=== PATIENT | male | born 1945 | race Caucasian/White ===

== ENCOUNTER 2019-11-01 04:54 | Observation (INO) ==
[2019-11-01] MEDS ORDERED: ASPIRIN 325 MG TABLET PO STA (05:23)
[2019-11-01 05:58] LABS: Alanine Aminotransferase 30 U/L (16-61); Albumin 3.5 G/DL (3.4-5.0); Alkaline Phosphatase 71 U/L (45-117); Aspartate Amino Transferase 18 U/L (0-37); Blood Urea Nitrogen 19 MG/DL (7-18); Calcium 8.6 MG/DL (8.5-10.1); Estimated Glom Filtration Rate 63 ML/MIN; Glucose 143 MG/DL (74-106); Osmolality,Calculated 273.1 MOS/KG (273-304); Total Protein 7.1 G/DL (6.4-8.3)
[2019-11-01 06:14] LABS: Basophils # 0.1 10*3/uL (0.0-0.2); Basophils % 0.7 % (0.0-0.8); Eosinophils # 0.4 10*3/uL (0.0-0.87); Eosinophils % 5.7 % (0.00-10.9); Hematocrit 37.1 VOL% (42.0-52.0); Hemoglobin 12.4 GM/DL (14.0-18.0); Immature Granulocytes % 0.7 %; Immature Granulocytes Absolute 0.05 #; Lymphocytes # 1.9 10*3/uL (1.4-4.0); Mean Corpuscular HGB Conc 33.4 GM/DL (32-36); Mean Platelet Volume 10.6 FL (9.6-12.0); Monocytes % 7.3 % (1.7-12.7); Neutrophils % 60.6 % (38.7-73.9); Platelet Count 226 T/CUMM (130-400); Red Blood Count 3.99 MC/CUMM (3.8-5.5); White Blood Count 7.4 T/CUMM (4-12)
[2019-11-01] MEDS ORDERED: SODIUM CHLORIDE 0.9% 1,000 ML IV STA (06:24)
[2019-11-01] MEDS ORDERED: VANCOMYCIN INJ 1,500 MG in SODIUM CHLORIDE 0.9% 250 ML IV ONE (06:54)
[2019-11-01] MEDS ORDERED: VANCOMYCIN 1,000 MG VIAL ONE (07:01)
[2019-11-01] MEDS ORDERED: ONDANSETRON 4 MG/2 ML VIAL IV PRN (07:57)
[2019-11-01] MEDS ORDERED: BISACODYL 5 MG TABLET PO PRN (07:57)
[2019-11-01 08:17] LABS: Risk Ratio 8.15; VLDL CHOLESTEROL 147.4 MG/DL
[2019-11-01 08:22] LABS: PT Patient Result 10.7 SECS (9.6-12.2)
[2019-11-01] MEDS ORDERED: ASPIRIN EC 81 MG TABLET PO SCH (09:00)
[2019-11-01] MEDS ORDERED: PANTOPRAZOLE 40 MG TABLET PO SCH (09:00)
[2019-11-01] MEDS: SODIUM CHLORIDE 0.9% 1,000 ML IV SCH (09:09)
[2019-11-01] MEDS: CALCIUM (CARBONATE)/VITAMIN D 600 MG-400 UNIT TABLET PO SCH ×2 (11:55→20:59)
[2019-11-01] MEDS: APIXABAN 5 MG TABLET PO SCH (11:55)
[2019-11-01] MEDS: CHOLECALCIFEROL 5,000 UNIT TABLET PO SCH (11:56)
[2019-11-01] MEDS: SERTRALINE 50 MG TABLET PO SCH (11:56)
[2019-11-01] MEDS: ALFUZOSIN 10 MG TABLET PO SCH (11:56)
[2019-11-01] MEDS: gemfibroziL 600 MG TABLET PO SCH (19:07)
[2019-11-01] MEDS: DOXYCYCLINE HYCLATE 100 MG CAPSULE PO SCH (20:59)
[2019-11-01] MEDS ORDERED: DONEPEZIL 5 MG TABLET PO SCH (21:00)
[2019-11-01] MEDS ORDERED: VANCOMYCIN INJ 1,500 MG in SODIUM CHLORIDE 0.9% 500 ML IV SCH (21:00)
[2019-11-02 05:29] LABS: Calcium 8.4 MG/DL (8.5-10.1); Osmolality,Calculated 281.3 MOS/KG (273-304)
[2019-11-02] MEDS: SODIUM CHLORIDE 0.9% 1,000 ML IV SCH (05:58)
[2019-11-02 08:30] LABS: Apearance,Urine CLEAR (Clear); Bilirubin,Urine Negative (Negative); Blood, Urine Moderate mg/dL (Negative); Glucose,Urine (UA) Negative (Negative); Ketones,Urine Negative (Negative); Nitrite,Urine Negative (Negative); Protein,Urine Negative; RBC,Urine 17 /HPF (0-4); Urine Color Straw (Yellow); Urine Specific Gravity 1.008 (1.001-1.035); Urine Urobilinogen < 2.0 EU/DL (0.2-1.0); WBC,Urine 1 /HPF (0-6)
[2019-11-02] MEDS: ALFUZOSIN 10 MG TABLET PO SCH (09:34)
[2019-11-02] MEDS: CALCIUM (CARBONATE)/VITAMIN D 600 MG-400 UNIT TABLET PO SCH (09:34)
[2019-11-02] MEDS: DOXYCYCLINE HYCLATE 100 MG CAPSULE PO SCH (09:35)
[2019-11-02] MEDS: APIXABAN 5 MG TABLET PO SCH (09:35)
[2019-11-02] MEDS: gemfibroziL 600 MG TABLET PO SCH (09:35)
[2019-11-02] MEDS: CHOLECALCIFEROL 5,000 UNIT TABLET PO SCH (09:35)
[2019-11-02] MEDS: SERTRALINE 50 MG TABLET PO SCH (09:41)
[2019-11-02 11:44] VITALS: BP 145/82
== END 2019-11-02 14:10 | disposition home or self-care (01) ==
LOC: N.EDINP 04:54 → N.ED 04:54 → N.EDINP 08:40 → N.4E 08:59
PROVIDERS: ADMIT Internal Medicine; ATTEND Internal Medicine

== ENCOUNTER 2022-02-25 09:45 | Inpatient (IN) ==
[2022-02-25] MEDS ORDERED: THIAMINE INJ 100 MG, FOLIC ACID INJ 1 MG, MAGNESIUM SULF INJ 2 GM, MULTIVITAMIN INJ 10 ... IV ONE (10:15)
[2022-02-25] MEDS ORDERED: SODIUM CHLORIDE 0.9% 1,000 ML IV STA (10:15)
[2022-02-25 10:46] LABS: Basophils % 0.5 % (0.0-0.8); Eosinophils # 0.1 10*3/uL (0.0-0.87); Eosinophils % 1.5 % (0.00-10.9); Hematocrit 36.6 VOL% (42.0-52.0); Hemoglobin 12.8 GM/DL (14.0-18.0); Immature Granulocytes % 0.5 %; Immature Granulocytes Absolute 0.04 #; Lymphocytes # 1.4 10*3/uL (1.4-4.0); Lymphocytes % 16.9 % (21.2-54.2); Mean Corpuscular Volume 93.4 FL (87-102); Mean Platelet Volume 10.7 FL (9.6-12.0); Monocytes # 0.7 10*3/uL (0.11-0.8); Monocytes % 8.4 % (1.7-12.7); Neutrophils % 72.2 % (38.7-73.9); Platelet Count 234 T/CUMM (130-400); Red Blood Count 3.92 MC/CUMM (3.8-5.5); Red Cell Distribution Width 15.4 % (9.3-17.3)
[2022-02-25 10:56] LABS: PT Patient Result 11.4 SECS (10.5-12.0)
[2022-02-25 11:03] LABS: Albumin 3.4 G/DL (3.4-5.0); Bilirubin,Total 1.4 MG/DL (0.20-1.00); Calcium 8.3 MG/DL (8.5-10.1); Osmolality,Calculated 283.3 MOS/KG (273-304); Potassium 3.4 MMOL/L (3.5-5.1); Thyroid Stimulating Hormone 1.24 uIU/ml (0.358-3.74); Total Protein 6.3 G/DL (6.4-8.2)
[2022-02-25] MEDS ORDERED: GLUCAGON 1 MG VIAL IM PRN (13:33)
[2022-02-25] MEDS ORDERED: ONDANSETRON 4 MG/2 ML VIAL IV PRN (13:33)
[2022-02-25 13:45] LABS: Arterial Base Excess iSTAT 1 MMOL/L (-2.5-2.5); Arterial Bicarbonate iSTAT 26.1 MMOL/L (20-26); Arterial O2 Saturation iSTAT 94 % (95-100); Arterial PCO2 iSTAT 42 MM HG (35-48); Arterial PO2 iSTAT 72 MM HG (80-95); Arterial Total CO2 iSTAT 27 MMO/L (23-27); Arterial pH iSTAT 7.406 (7.35-7.45)
[2022-02-25] MEDS ORDERED: ACETAMINOPHEN 650 MG SUPP RECTAL PRN (13:51)
[2022-02-25] MEDS ORDERED: HEPARIN 5,000 UNIT/1 ML VIAL SUBCUT SCH (14:00)
[2022-02-25] MEDS ORDERED: DEXTROSE 10% 250 ML BAG IV PRN (14:05)
[2022-02-25] MEDS ORDERED: POTASSIUM CHLORIDE RIDER 10 MEQ/100 ML PREMIX IV PRN (15:03)
[2022-02-25 15:09] LABS: Urine Appearance Slightly Hazy (Clear); Urine Color Yellow (Yellow); Urine Specific Gravity 1.025 (1.001-1.035); Urine pH 6.5 (4.5-8.0)
[2022-02-25 15:10] LABS: Bilirubin,Urine Small mg/dL (Negative); Blood, Urine Negative (Negative); Glucose,Urine (UA) Negative (Negative); Ketones,Urine Negative (Negative); Nitrite,Urine Negative (Negative); Protein,Urine Trace mg/dL (Negative)
[2022-02-25 15:13] LABS: Mucus,Urine Occasional /LPF (Occasional); RBC,Urine 5 /HPF (0-4); Squamous Epithelial Cell,Urine Occasional /HPF (0-10)
[2022-02-25] MEDS: LACTATED RINGERS 1,000 ML IV SCH (18:40)
[2022-02-25] MEDS: cefTRIAXone 1,000 MG in SODIUM CHLORIDE 0.9% 100 ML IV SCH (18:40)
[2022-02-25] MEDS: clonazePAM 0.5 MG TABLET PO PRN (21:38)
[2022-02-25] MEDS: ATORVASTATIN 80 MG TABLET PO SCH (21:38)
[2022-02-25] MEDS: DOXYCYCLINE HYCLATE INJ 100 MG in SODIUM CHLORIDE 0.9% 100 ML IV SCH (21:39)
[2022-02-26] MEDS ORDERED: LORazepam 2 MG/1 ML VIAL IV ONE (01:07)
[2022-02-26 05:36] LABS: Basophils % 0.6 % (0.0-0.8); Eosinophils # 0.2 10*3/uL (0.0-0.87); Eosinophils % 2.4 % (0.00-10.9); Hematocrit 36.6 VOL% (42.0-52.0); Hemoglobin 12.3 GM/DL (14.0-18.0); Immature Granulocytes % 0.3 %; Immature Granulocytes Absolute 0.02 #; Lymphocytes # 1.4 10*3/uL (1.4-4.0); Lymphocytes % 21.7 % (21.2-54.2); Mean Corpuscular HGB Conc 33.6 GM/DL (32-36); Mean Corpuscular Volume 95.3 FL (87-102); Mean Platelet Volume 11.1 FL (9.6-12.0); Monocytes # 0.5 10*3/uL (0.11-0.8); Monocytes % 7.2 % (1.7-12.7); Neutrophils % 67.8 % (38.7-73.9); Platelet Count 243 T/CUMM (130-400); Red Blood Count 3.84 MC/CUMM (3.8-5.5); Red Cell Distribution Width 15.2 % (9.3-17.3); White Blood Count 6.6 T/CUMM (4-12)
[2022-02-26 06:08] LABS: Albumin 3.2 G/DL (3.4-5.0); Bilirubin,Total 1.3 MG/DL (0.20-1.00); Calcium 8.3 MG/DL (8.5-10.1); Total Protein 6.2 G/DL (6.4-8.2)
[2022-02-26] MEDS ORDERED: DIAZEPAM 5 MG TABLET PO ONE (08:34)
[2022-02-26] MEDS ORDERED: diphenhydrAMINE CAP 25 MG CAPSULE PO ONE (08:34)
[2022-02-26] MEDS ORDERED: ceFAZolin 1,000 MG VIAL IRRIG ONE (08:34)
[2022-02-26] MEDS ORDERED: MIDAZOLAM 2 MG/2 ML VIAL ONE (10:09)
[2022-02-26] MEDS ORDERED: HYDROmorphone 1 MG/1 ML SYRINGE ONE ×2 (10:09→10:34)
[2022-02-26] MEDS ORDERED: LIDOCAINE 1%/EPI INJ 20 ML VIAL ONE (10:09)
[2022-02-26] MEDS ORDERED: ceFAZolin 1,000 MG VIAL ONE (10:16)
[2022-02-26] MEDS ORDERED: TISSUE ADHESIVE 1 EACH APPLICATOR TOP ONE (10:52)
[2022-02-26] MEDS: DOXYCYCLINE HYCLATE INJ 100 MG in SODIUM CHLORIDE 0.9% 100 ML IV SCH ×2 (13:37→22:57)
[2022-02-26] MEDS: LACTATED RINGERS 1,000 ML IV SCH ×2 (14:35→14:39)
[2022-02-26] MEDS: cefTRIAXone 1,000 MG in SODIUM CHLORIDE 0.9% 100 ML IV SCH (16:56)
[2022-02-26] MEDS: DONEPEZIL 10 MG TABLET PO SCH (22:33)
[2022-02-26] MEDS: OLANZapine 5 MG TABLET PO SCH (22:34)
[2022-02-26] MEDS: ATORVASTATIN 80 MG TABLET PO SCH (22:34)
[2022-02-27] MEDS: LACTATED RINGERS 1,000 ML IV SCH ×3 (03:19→18:38)
[2022-02-27 05:13] LABS: Basophils % 0.5 % (0.0-0.8); Eosinophils # 0.1 10*3/uL (0.0-0.87); Eosinophils % 1.5 % (0.00-10.9); Hemoglobin 13.6 GM/DL (14.0-18.0); Immature Granulocytes % 0.2 %; Immature Granulocytes Absolute 0.02 #; Lymphocytes # 1.3 10*3/uL (1.4-4.0); Lymphocytes % 15.2 % (21.2-54.2); Mean Corpuscular Volume 94.1 FL (87-102); Mean Platelet Volume 10.9 FL (9.6-12.0); Monocytes # 0.6 10*3/uL (0.11-0.8); Monocytes % 6.4 % (1.7-12.7); Neutrophils % 76.2 % (38.7-73.9); Platelet Count 235 T/CUMM (130-400); Red Blood Count 4.25 MC/CUMM (3.8-5.5); Red Cell Distribution Width 14.9 % (9.3-17.3); White Blood Count 8.7 T/CUMM (4-12)
[2022-02-27 05:28] LABS: Calcium 8.4 MG/DL (8.5-10.1); Osmolality,Calculated 278.4 MOS/KG (273-304); Potassium 4.3 MMOL/L (3.5-5.1)
[2022-02-27] MEDS: ASPIRIN EC 81 MG TABLET PO SCH (09:37)
[2022-02-27] MEDS: DOXYCYCLINE HYCLATE INJ 100 MG in SODIUM CHLORIDE 0.9% 100 ML IV SCH (09:55)
[2022-02-27] MEDS: carvediloL 3.125 MG TABLET PO SCH ×2 (09:57→21:29)
[2022-02-27] MEDS: APIXABAN 5 MG TABLET PO SCH (21:27)
[2022-02-27] MEDS: OLANZapine 5 MG TABLET PO SCH (21:27)
[2022-02-27] MEDS: ATORVASTATIN 80 MG TABLET PO SCH (21:27)
[2022-02-27] MEDS: DONEPEZIL 10 MG TABLET PO SCH (21:29)
[2022-02-27] MEDS: clonazePAM 0.5 MG TABLET PO PRN (21:29)
[2022-02-28] MEDS: LACTATED RINGERS 1,000 ML IV SCH ×2 (04:39→19:49)
[2022-02-28] MEDS: APIXABAN 5 MG TABLET PO SCH ×2 (09:59→20:26)
[2022-02-28] MEDS: carvediloL 3.125 MG TABLET PO SCH ×2 (09:59→20:26)
[2022-02-28] MEDS: ASPIRIN EC 81 MG TABLET PO SCH (09:59)
[2022-02-28] MEDS: ATORVASTATIN 80 MG TABLET PO SCH (20:26)
[2022-03-01] MEDS: LACTATED RINGERS 1,000 ML IV SCH ×5 (04:56→17:24)
[2022-03-01 07:43] LABS: Basophils # 0.1 10*3/uL (0.0-0.2); Basophils % 0.7 % (0.0-0.8); Eosinophils # 0.2 10*3/uL (0.0-0.87); Eosinophils % 3.1 % (0.00-10.9); Hemoglobin 12.7 GM/DL (14.0-18.0); Immature Granulocytes % 0.5 %; Immature Granulocytes Absolute 0.04 #; Lymphocytes # 1.5 10*3/uL (1.4-4.0); Lymphocytes % 20.2 % (21.2-54.2); Mean Corpuscular HGB Conc 34.3 GM/DL (32-36); Mean Corpuscular Volume 92.5 FL (87-102); Mean Platelet Volume 10.6 FL (9.6-12.0); Monocytes # 0.6 10*3/uL (0.11-0.8); Monocytes % 7.9 % (1.7-12.7); Neutrophils % 67.6 % (38.7-73.9); Platelet Count 215 T/CUMM (130-400); Red Cell Distribution Width 14.8 % (9.3-17.3); White Blood Count 7.4 T/CUMM (4-12)
[2022-03-01 08:05] LABS: Albumin 2.9 G/DL (3.4-5.0); Bilirubin,Total 1.1 MG/DL (0.20-1.00); Calcium 8.5 MG/DL (8.5-10.1); Osmolality,Calculated 274.7 MOS/KG (273-304); Potassium 3.9 MMOL/L (3.5-5.1); Total Protein 5.9 G/DL (6.4-8.2)
[2022-03-01] MEDS: carvediloL 3.125 MG TABLET PO SCH ×2 (08:13→21:27)
[2022-03-01] MEDS: ASPIRIN EC 81 MG TABLET PO SCH (08:13)
[2022-03-01] MEDS: APIXABAN 5 MG TABLET PO SCH ×2 (08:13→21:27)
[2022-03-01] MEDS: ATORVASTATIN 80 MG TABLET PO SCH (21:27)
[2022-03-01] MEDS: clonazePAM 0.5 MG TABLET PO PRN (21:30)
[2022-03-02 04:22] LABS: Basophils % 0.6 % (0.0-0.8); Eosinophils # 0.2 10*3/uL (0.0-0.87); Hematocrit 39.4 VOL% (42.0-52.0); Hemoglobin 13.8 GM/DL (14.0-18.0); Immature Granulocytes % 0.6 %; Immature Granulocytes Absolute 0.04 #; Lymphocytes # 1.3 10*3/uL (1.4-4.0); Lymphocytes % 19.3 % (21.2-54.2); Mean Corpuscular Volume 91.6 FL (87-102); Mean Platelet Volume 10.4 FL (9.6-12.0); Monocytes # 0.5 10*3/uL (0.11-0.8); Monocytes % 7.1 % (1.7-12.7); Neutrophils % 69.4 % (38.7-73.9); Platelet Count 251 T/CUMM (130-400); Red Cell Distribution Width 14.7 % (9.3-17.3); White Blood Count 6.6 T/CUMM (4-12)
[2022-03-02 04:40] LABS: Calcium 8.6 MG/DL (8.5-10.1); Osmolality,Calculated 276.5 MOS/KG (273-304); Potassium 3.9 MMOL/L (3.5-5.1)
[2022-03-02] MEDS: APIXABAN 5 MG TABLET PO SCH ×2 (10:52→21:19)
[2022-03-02] MEDS: carvediloL 3.125 MG TABLET PO SCH ×2 (10:52→21:18)
[2022-03-02] MEDS: ASPIRIN EC 81 MG TABLET PO SCH (10:52)
[2022-03-02] MEDS: ATORVASTATIN 80 MG TABLET PO SCH (21:18)
[2022-03-02] MEDS: QUEtiapine 25 MG TABLET PO SCH (21:19)
[2022-03-03] MEDS: APIXABAN 5 MG TABLET PO SCH ×2 (11:07→20:39)
[2022-03-03] MEDS: carvediloL 3.125 MG TABLET PO SCH ×2 (11:07→20:39)
[2022-03-03] MEDS: ASPIRIN EC 81 MG TABLET PO SCH (11:07)
[2022-03-03] MEDS: QUEtiapine 25 MG TABLET PO SCH (20:39)
[2022-03-03] MEDS: ATORVASTATIN 80 MG TABLET PO SCH (20:39)
[2022-03-04 05:24] LABS: Basophils # 0.1 10*3/uL (0.0-0.2); Basophils % 0.8 % (0.0-0.8); Eosinophils # 0.2 10*3/uL (0.0-0.87); Eosinophils % 2.8 % (0.00-10.9); Hematocrit 40.3 VOL% (42.0-52.0); Hemoglobin 13.8 GM/DL (14.0-18.0); Immature Granulocytes % 0.3 %; Immature Granulocytes Absolute 0.02 #; Lymphocytes # 1.7 10*3/uL (1.4-4.0); Lymphocytes % 27.8 % (21.2-54.2); Mean Corpuscular HGB Conc 34.2 GM/DL (32-36); Mean Corpuscular Volume 92.4 FL (87-102); Monocytes # 0.6 10*3/uL (0.11-0.8); Neutrophils % 59.3 % (38.7-73.9); Platelet Count 257 T/CUMM (130-400); Red Blood Count 4.36 MC/CUMM (3.8-5.5); Red Cell Distribution Width 14.6 % (9.3-17.3); White Blood Count 6.1 T/CUMM (4-12)
[2022-03-04 05:26] LABS: Calcium 9.1 MG/DL (8.5-10.1); Osmolality,Calculated 281.4 MOS/KG (273-304); Potassium 3.9 MMOL/L (3.5-5.1)
[2022-03-04] MEDS: carvediloL 3.125 MG TABLET PO SCH ×2 (08:55→20:00)
[2022-03-04] MEDS: ASPIRIN EC 81 MG TABLET PO SCH (08:55)
[2022-03-04] MEDS: APIXABAN 5 MG TABLET PO SCH ×2 (08:56→20:00)
[2022-03-04] MEDS: ATORVASTATIN 80 MG TABLET PO SCH (20:00)
[2022-03-04] MEDS: QUEtiapine 25 MG TABLET PO SCH (20:00)
[2022-03-04] MEDS ORDERED: LORazepam 2 MG/1 ML VIAL IV PRN (20:33)
[2022-03-05] MEDS: ASPIRIN EC 81 MG TABLET PO SCH (08:43)
[2022-03-05] MEDS: carvediloL 3.125 MG TABLET PO SCH (08:43)
[2022-03-05] MEDS: APIXABAN 5 MG TABLET PO SCH (08:43)
[2022-03-05 11:51] VITALS: BP 121/78
[2022-03-05] MEDS ORDERED: QUEtiapine 25 MG TABLET PO SCH (21:00)
== END 2022-03-05 15:00 | disposition home health service (06) | DRG 876 ==
LOC: N.EDINP 09:45 → N.ED 09:45 → SUATTDRO 13:33 → N.EDINP 15:39 → N.TELES 16:39 → SUATTDRO 02-28 15:25
PROVIDERS: ADMIT Internal Medicine; ATTEND Emergency Medicine

== ENCOUNTER 2022-03-16 13:14 | Inpatient (IN) ==
[2022-03-16 13:27] LABS: Basophils # 0.1 10*3/uL (0.0-0.2); Basophils % 0.4 % (0.0-0.8); Eosinophils % 0.1 % (0.00-10.9); Hematocrit 53.2 VOL% (42.0-52.0); Hemoglobin 17.9 GM/DL (14.0-18.0); Immature Granulocytes % 0.5 %; Immature Granulocytes Absolute 0.07 #; Lymphocytes % 14.5 % (21.2-54.2); Mean Corpuscular HGB Conc 33.6 GM/DL (32-36); Mean Corpuscular Volume 95.3 FL (87-102); Mean Platelet Volume 11.9 FL (9.6-12.0); Monocytes % 7.1 % (1.7-12.7); NRBC # 0.02 10*3/uL; Neutrophils % 77.4 % (38.7-73.9); Platelet Count 340 T/CUMM (130-400); Red Blood Count 5.58 MC/CUMM (3.8-5.5); White Blood Count 14.1 T/CUMM (4-12)
[2022-03-16 14:00] LABS: Mucus,Urine Occasional /LPF (Occasional); RBC,Urine 1 /HPF (0-4); Squamous Epithelial Cell,Urine Occasional /HPF (0-10)
[2022-03-16 14:03] LABS: Bilirubin,Urine Small mg/dL (Negative); Blood, Urine Negative (Negative); Glucose,Urine (UA) Negative (Negative); Ketones,Urine Negative (Negative); Nitrite,Urine Negative (Negative); Protein,Urine Trace mg/dL (Negative); Urine Appearance Clear (Clear); Urine Color Yellow (Yellow); Urine Specific Gravity 1.026 (1.001-1.035); Urine Urobilinogen 0.2 eU/dL (<2.0); Urine pH 5.5 (4.5-8.0)
[2022-03-16 14:14] LABS: Albumin 3.7 G/DL (3.4-5.0); Bilirubin,Total 1.2 MG/DL (0.20-1.00); Calcium 9.1 MG/DL (8.5-10.1); Osmolality,Calculated 313.3 MOS/KG (273-304); Potassium 4.2 MMOL/L (3.5-5.1); Total Protein 7.9 G/DL (6.4-8.2)
[2022-03-16 14:23] LABS: Barbiturates Screen,Urine Negative (Negative); Benzodiazepines Screen,Urine Negative (Negative); Cannabinoid Screen,Urine Negative (Negative); Opiate Screen,Urine Negative (Negative); Phencyclidine Screen,Urine Negative (Negative)
[2022-03-16] MEDS ORDERED: SODIUM CHLORIDE 0.9% 1,000 ML IV STA (16:17)
[2022-03-16] MEDS ORDERED: GLUCAGON 1 MG VIAL IM PRN (18:38)
[2022-03-16] MEDS: ALBUTEROL/IPRATROPIUM 3 ML NEB RESP TX SCH (18:55)
[2022-03-16] MEDS ORDERED: DEXTROSE 10% 250 ML BAG IV PRN (19:06)
[2022-03-16] MEDS: SODIUM CHLORIDE 0.9% 1,000 ML IV SCH (19:20)
[2022-03-16] MEDS: ENOXAPARIN 40 MG/0.4 ML SYRINGE SUBCUT SCH (19:21)
[2022-03-16] MEDS ORDERED: AMPICILLIN/SULBACTAM 3,000 MG VIAL IM SCH (19:30)
[2022-03-16] MEDS: AMPICILLIN/SULBACTAM 3,000 MG in SODIUM CHLORIDE 0.9% 100 ML IV SCH (21:58)
[2022-03-17] MEDS: ALBUTEROL/IPRATROPIUM 3 ML NEB RESP TX SCH ×4 (00:40→19:53)
[2022-03-17] MEDS: METOPROLOL TARTRATE 5 MG/5 ML VIAL IV SCH ×4 (00:45→17:20)
[2022-03-17] MEDS: SODIUM CHLORIDE 0.9% 1,000 ML IV SCH (04:05)
[2022-03-17 05:50] LABS: Basophils % 0.3 % (0.0-0.8); Eosinophils % 0.1 % (0.00-10.9); Hematocrit 46.4 VOL% (42.0-52.0); Hemoglobin 15.3 GM/DL (14.0-18.0); Immature Granulocytes % 0.5 %; Immature Granulocytes Absolute 0.06 #; Lymphocytes # 1.4 10*3/uL (1.4-4.0); Lymphocytes % 10.8 % (21.2-54.2); Mean Corpuscular Volume 98.3 FL (87-102); Mean Platelet Volume 11.9 FL (9.6-12.0); Monocytes # 0.8 10*3/uL (0.11-0.8); Monocytes % 6.4 % (1.7-12.7); Neutrophils % 81.9 % (38.7-73.9); Platelet Count 263 T/CUMM (130-400); Red Blood Count 4.72 MC/CUMM (3.8-5.5); White Blood Count 12.8 T/CUMM (4-12)
[2022-03-17 06:15] LABS: Calcium 8.5 MG/DL (8.5-10.1); Osmolality,Calculated 322.6 MOS/KG (273-304); Potassium 3.7 MMOL/L (3.5-5.1); Thyroid Stimulating Hormone 1.36 uIU/ml (0.358-3.74)
[2022-03-17] MEDS: PANTOPRAZOLE 40 MG VIAL IV SCH (08:56)
[2022-03-17] MEDS: DEXTROSE 5% LACTATED RINGERS 1,000 ML IV SCH ×2 (09:16→18:19)
[2022-03-17] MEDS: AMPICILLIN/SULBACTAM 3,000 MG in SODIUM CHLORIDE 0.9% 100 ML IV SCH ×2 (09:16→21:58)
[2022-03-17] MEDS: ENOXAPARIN 40 MG/0.4 ML SYRINGE SUBCUT SCH (18:19)
[2022-03-18] MEDS: METOPROLOL TARTRATE 5 MG/5 ML VIAL IV SCH ×2 (00:48→05:48)
[2022-03-18] MEDS: ALBUTEROL/IPRATROPIUM 3 ML NEB RESP TX SCH ×4 (00:51→19:30)
[2022-03-18] MEDS: DEXTROSE 5% LACTATED RINGERS 1,000 ML IV SCH (03:45)
[2022-03-18 05:17] LABS: Basophils % 0.4 % (0.0-0.8); Eosinophils % 0.4 % (0.00-10.9); Hematocrit 42.4 VOL% (42.0-52.0); Hemoglobin 13.7 GM/DL (14.0-18.0); Immature Granulocytes % 0.4 %; Immature Granulocytes Absolute 0.04 #; Lymphocytes # 1.1 10*3/uL (1.4-4.0); Lymphocytes % 11.6 % (21.2-54.2); Mean Corpuscular HGB Conc 32.3 GM/DL (32-36); Mean Corpuscular Volume 98.8 FL (87-102); Mean Platelet Volume 12.5 FL (9.6-12.0); Monocytes # 0.6 10*3/uL (0.11-0.8); Monocytes % 6.1 % (1.7-12.7); Neutrophils % 81.1 % (38.7-73.9); Platelet Count 225 T/CUMM (130-400); Red Blood Count 4.29 MC/CUMM (3.8-5.5); Red Cell Distribution Width 15.9 % (9.3-17.3); White Blood Count 9.5 T/CUMM (4-12)
[2022-03-18 05:23] LABS: Calcium 8.2 MG/DL (8.5-10.1); Potassium 3.5 MMOL/L (3.5-5.1)
[2022-03-18] MEDS: DEXTROSE 5% NACL 0.45% 1,000 ML IV SCH (09:03)
[2022-03-18] MEDS: HEPARIN 5,000 UNIT/1 ML VIAL SUBCUT SCH ×2 (09:08→20:51)
[2022-03-18] MEDS ORDERED: HALOPERIDOL 5 MG/ML AMP IM PRN (09:30)
[2022-03-18] MEDS ORDERED: BISACODYL 10 MG SUPP RECTAL ONE (11:39)
[2022-03-18] MEDS: PANTOPRAZOLE 40 MG VIAL IV SCH (12:06)
[2022-03-18] MEDS: AMPICILLIN/SULBACTAM 3,000 MG in SODIUM CHLORIDE 0.9% 100 ML IV SCH ×3 (12:10→18:23)
[2022-03-18] MEDS: VANCOMYCIN INJ 1,250 MG in SODIUM CHLORIDE 0.9% 250 ML IV SCH (13:27)
[2022-03-18 14:20] LABS: Hematocrit 42.5 VOL% (42.0-52.0); Hemoglobin 13.3 GM/DL (14.0-18.0)
[2022-03-19] MEDS: DEXTROSE 5% NACL 0.45% 1,000 ML IV SCH ×3 (00:03→07:18)
[2022-03-19] MEDS: AMPICILLIN/SULBACTAM 3,000 MG in SODIUM CHLORIDE 0.9% 100 ML IV SCH ×2 (00:04→05:06)
[2022-03-19] MEDS: ALBUTEROL/IPRATROPIUM 3 ML NEB RESP TX SCH ×4 (00:30→20:46)
[2022-03-19 05:37] LABS: Basophils # 0.1 10*3/uL (0.0-0.2); Basophils % 0.4 % (0.0-0.8); Eosinophils # 0.1 10*3/uL (0.0-0.87); Hematocrit 39.7 VOL% (42.0-52.0); Hemoglobin 12.8 GM/DL (14.0-18.0); Immature Granulocytes % 0.5 %; Immature Granulocytes Absolute 0.07 #; Lymphocytes # 0.9 10*3/uL (1.4-4.0); Lymphocytes % 6.6 % (21.2-54.2); Mean Corpuscular HGB Conc 32.2 GM/DL (32-36); Mean Corpuscular Volume 99.7 FL (87-102); Monocytes # 0.7 10*3/uL (0.11-0.8); Monocytes % 4.6 % (1.7-12.7); Neutrophils % 86.9 % (38.7-73.9); Platelet Count 183 T/CUMM (130-400); Red Blood Count 3.98 MC/CUMM (3.8-5.5); Red Cell Distribution Width 15.9 % (9.3-17.3); White Blood Count 14.2 T/CUMM (4-12)
[2022-03-19 05:56] LABS: Calcium 8.1 MG/DL (8.5-10.1); Potassium 3.3 MMOL/L (3.5-5.1)
[2022-03-19] MEDS: VANCOMYCIN INJ 1,250 MG in SODIUM CHLORIDE 0.9% 250 ML IV SCH (06:35)
[2022-03-19] MEDS ORDERED: DEXTROSE 5% 1,000 ML IV SCH (08:00)
[2022-03-19] MEDS: PANTOPRAZOLE 40 MG VIAL IV SCH (08:29)
[2022-03-19] MEDS: HEPARIN 5,000 UNIT/1 ML VIAL SUBCUT SCH ×2 (08:32→20:42)
[2022-03-19] MEDS ORDERED: POTASSIUM BICARB EFFERVESCENT 20 MEQ TAB.EFF PER TUBE ONE (10:22)
[2022-03-20] MEDS: ALBUTEROL/IPRATROPIUM 3 ML NEB RESP TX SCH ×4 (01:12→20:15)
[2022-03-20] MEDS: VANCOMYCIN INJ 1,250 MG in SODIUM CHLORIDE 0.9% 250 ML IV SCH ×2 (01:17→19:54)
[2022-03-20 05:36] LABS: Basophils % 0.4 % (0.0-0.8); Eosinophils # 0.2 10*3/uL (0.0-0.87); Eosinophils % 1.7 % (0.00-10.9); Hematocrit 38.1 VOL% (42.0-52.0); Hemoglobin 12.3 GM/DL (14.0-18.0); Immature Granulocytes % 0.7 %; Immature Granulocytes Absolute 0.07 #; Lymphocytes # 1.2 10*3/uL (1.4-4.0); Mean Corpuscular HGB Conc 32.3 GM/DL (32-36); Mean Platelet Volume 11.9 FL (9.6-12.0); Monocytes # 0.5 10*3/uL (0.11-0.8); Monocytes % 4.6 % (1.7-12.7); Neutrophils % 80.6 % (38.7-73.9); Platelet Count 174 T/CUMM (130-400); Red Blood Count 3.81 MC/CUMM (3.8-5.5); Red Cell Distribution Width 15.9 % (9.3-17.3); White Blood Count 9.8 T/CUMM (4-12)
[2022-03-20 06:11] LABS: Calcium 8.2 MG/DL (8.5-10.1); Osmolality,Calculated 314.2 MOS/KG (273-304); Phosphorous 2.6 MG/DL (2.5-4.9); Potassium 3.4 MMOL/L (3.5-5.1)
[2022-03-20] MEDS: HEPARIN 5,000 UNIT/1 ML VIAL SUBCUT SCH ×2 (10:47→20:49)
[2022-03-20] MEDS: PANTOPRAZOLE 40 MG VIAL IV SCH (10:50)
[2022-03-20] MEDS: DEXTROSE 5% 1,000 ML IV SCH (12:20)
[2022-03-20] MEDS: POTASSIUM BICARB EFFERVESCENT 20 MEQ TAB.EFF PER TUBE SCH ×2 (12:21→20:49)
[2022-03-20] MEDS ORDERED: ZINC OXIDE PASTE 113 GM TUBE TOP PRN (14:21)
[2022-03-21] MEDS: ALBUTEROL/IPRATROPIUM 3 ML NEB RESP TX SCH ×4 (01:40→19:57)
[2022-03-21 04:54] LABS: Basophils % 0.4 % (0.0-0.8); Eosinophils # 0.2 10*3/uL (0.0-0.87); Eosinophils % 2.6 % (0.00-10.9); Hematocrit 35.8 VOL% (42.0-52.0); Hemoglobin 11.6 GM/DL (14.0-18.0); Immature Granulocytes % 0.5 %; Immature Granulocytes Absolute 0.04 #; Lymphocytes % 12.2 % (21.2-54.2); Mean Corpuscular HGB Conc 32.4 GM/DL (32-36); Mean Corpuscular Volume 98.6 FL (87-102); Mean Platelet Volume 12.1 FL (9.6-12.0); Monocytes # 0.4 10*3/uL (0.11-0.8); Monocytes % 4.4 % (1.7-12.7); Neutrophils % 79.9 % (38.7-73.9); Platelet Count 169 T/CUMM (130-400); Red Blood Count 3.63 MC/CUMM (3.8-5.5); Red Cell Distribution Width 15.3 % (9.3-17.3); White Blood Count 8.4 T/CUMM (4-12)
[2022-03-21] MEDS: DEXTROSE 5% 1,000 ML IV SCH ×2 (05:04→11:12)
[2022-03-21 05:36] LABS: Calcium 7.8 MG/DL (8.5-10.1); Potassium 3.6 MMOL/L (3.5-5.1)
[2022-03-21] MEDS ORDERED: VANCOMYCIN INJ 1,000 MG in SODIUM CHLORIDE 0.9% 250 ML IV SCH (08:00)
[2022-03-21] MEDS: HEPARIN 5,000 UNIT/1 ML VIAL SUBCUT SCH ×2 (10:34→21:01)
[2022-03-21] MEDS: PANTOPRAZOLE 40 MG VIAL IV SCH (10:34)
[2022-03-22] MEDS: ALBUTEROL/IPRATROPIUM 3 ML NEB RESP TX SCH ×4 (00:06→20:09)
[2022-03-22 05:38] LABS: Basophils % 0.4 % (0.0-0.8); Eosinophils # 0.2 10*3/uL (0.0-0.87); Eosinophils % 3.1 % (0.00-10.9); Hematocrit 35.8 VOL% (42.0-52.0); Hemoglobin 11.4 GM/DL (14.0-18.0); Immature Granulocytes % 0.5 %; Immature Granulocytes Absolute 0.04 #; Lymphocytes # 1.1 10*3/uL (1.4-4.0); Lymphocytes % 13.4 % (21.2-54.2); Mean Corpuscular HGB Conc 31.8 GM/DL (32-36); Mean Corpuscular Volume 97.3 FL (87-102); Mean Platelet Volume 12.2 FL (9.6-12.0); Monocytes # 0.4 10*3/uL (0.11-0.8); Neutrophils % 77.6 % (38.7-73.9); Platelet Count 183 T/CUMM (130-400); Red Blood Count 3.68 MC/CUMM (3.8-5.5); Red Cell Distribution Width 15.2 % (9.3-17.3); White Blood Count 7.8 T/CUMM (4-12)
[2022-03-22 05:55] LABS: Calcium 7.7 MG/DL (8.5-10.1); Osmolality,Calculated 290.8 MOS/KG (273-304)
[2022-03-22] MEDS ORDERED: POTASSIUM CHLORIDE 20 MEQ TABLET PO ONE (07:35)
[2022-03-22] MEDS ORDERED: POTASSIUM BICARB EFFERVESCENT 20 MEQ TAB.EFF PER TUBE ONE (07:40)
[2022-03-22] MEDS: DEXTROSE 5% 1,000 ML IV SCH (08:10)
[2022-03-22] MEDS: PANTOPRAZOLE 40 MG VIAL IV SCH (09:20)
[2022-03-22] MEDS: HEPARIN 5,000 UNIT/1 ML VIAL SUBCUT SCH (09:26)
[2022-03-23] MEDS: ALBUTEROL/IPRATROPIUM 3 ML NEB RESP TX SCH ×4 (02:25→20:05)
[2022-03-23 04:59] LABS: Basophils % 0.3 % (0.0-0.8); Eosinophils # 0.2 10*3/uL (0.0-0.87); Eosinophils % 2.4 % (0.00-10.9); Immature Granulocytes % 0.8 %; Immature Granulocytes Absolute 0.06 #; Lymphocytes # 1.1 10*3/uL (1.4-4.0); Lymphocytes % 13.4 % (21.2-54.2); Mean Corpuscular HGB Conc 33.3 GM/DL (32-36); Mean Platelet Volume 12.2 FL (9.6-12.0); Monocytes # 0.4 10*3/uL (0.11-0.8); Monocytes % 5.2 % (1.7-12.7); Neutrophils % 77.9 % (38.7-73.9); Platelet Count 194 T/CUMM (130-400); Red Blood Count 3.75 MC/CUMM (3.8-5.5); White Blood Count 7.9 T/CUMM (4-12)
[2022-03-23 05:17] LABS: Calcium 8.1 MG/DL (8.5-10.1); Osmolality,Calculated 288.7 MOS/KG (273-304); Potassium 3.2 MMOL/L (3.5-5.1)
[2022-03-23 07:10] LABS: PT Patient Result 10.6 SECS (10.5-12.0)
[2022-03-23] MEDS ORDERED: POTASSIUM BICARB EFFERVESCENT 20 MEQ TAB.EFF PER TUBE ONE ×2 (07:21→07:27)
[2022-03-23] MEDS: PANTOPRAZOLE 40 MG VIAL IV SCH (09:42)
[2022-03-23] MEDS: LACTATED RINGERS 1,000 ML IV SCH (09:43)
[2022-03-23] MEDS ORDERED: ETOMIDATE 20 MG/10 ML VIAL IV ONE (10:21)
[2022-03-23] MEDS ORDERED: LIDOCAINE 2% 5 ML VIAL ONE (10:21)
[2022-03-23] MEDS ORDERED: propofoL 200 MG/20 ML VIAL IV ONE (10:21)
[2022-03-23] MEDS ORDERED: PHENYLEPHRINE 1 MG/10 ML SYRINGE IV ONE (10:30)
[2022-03-23] MEDS: ONDANSETRON 4 MG/2 ML VIAL IV PRN (17:48)
[2022-03-23] MEDS ORDERED: METOCLOPRAMIDE 10 MG/2 ML VIAL IV PRN (21:07)
[2022-03-24] MEDS: ALBUTEROL/IPRATROPIUM 3 ML NEB RESP TX SCH ×4 (00:35→19:49)
[2022-03-24 05:07] LABS: Osmolality,Calculated 286.3 MOS/KG (273-304)
[2022-03-24 05:20] LABS: Basophils % 0.2 % (0.0-0.8); Eosinophils % 0.1 % (0.00-10.9); Hematocrit 42.7 VOL% (42.0-52.0); Immature Granulocytes % 0.5 %; Immature Granulocytes Absolute 0.07 #; Lymphocytes # 0.5 10*3/uL (1.4-4.0); Lymphocytes % 3.6 % (21.2-54.2); Mean Corpuscular HGB Conc 33.5 GM/DL (32-36); Mean Corpuscular Volume 94.9 FL (87-102); Mean Platelet Volume 11.6 FL (9.6-12.0); Monocytes # 0.5 10*3/uL (0.11-0.8); Neutrophils % 92.6 % (38.7-73.9); Red Cell Distribution Width 15.5 % (9.3-17.3)
[2022-03-24 05:22] LABS: Hemoglobin 14.3 GM/DL (14.0-18.0); Platelet Count 255 T/CUMM (130-400); White Blood Count 14.8 T/CUMM (4-12)
[2022-03-24 05:36] LABS: Band Neutrophils 12 % (0-10); Lymphocytes 4 % (20-55); Nucleated Red Blood Cells 1 (0-5); Platelet Estimate Normal; Total Cells Counted 100
[2022-03-24] MEDS: LACTATED RINGERS 1,000 ML IV SCH (07:53)
[2022-03-24 08:07] LABS: Arterial Base Excess iSTAT 6 MMOL/L (-2.5-2.5); Arterial O2 Saturation iSTAT 92 % (95-100); Arterial PCO2 iSTAT 35 MM HG (35-48); Arterial PO2 iSTAT 57 MM HG (80-95); Arterial Total CO2 iSTAT 30 MMO/L (23-27); Arterial pH iSTAT 7.526 (7.35-7.45)
[2022-03-24] MEDS ORDERED: methylPREDNISolone SOD SUC 125 MG/2 ML VIAL IV ONE (08:13)
[2022-03-24] MEDS ORDERED: SODIUM CHLORIDE 0.9% 1,000 ML IV ONE (08:58)
[2022-03-24] MEDS: PANTOPRAZOLE 40 MG VIAL IV SCH (09:10)
[2022-03-24] MEDS: SODIUM CHLORIDE 0.9% 1,000 ML IV SCH ×3 (09:40→22:31)
[2022-03-24] MEDS ORDERED: SUCCINYLCHOLINE 200 MG/10 ML VIAL ONE (09:58)
[2022-03-24] MEDS ORDERED: ETOMIDATE 20 MG/10 ML VIAL IV ONE ×2 (09:58→10:00)
[2022-03-24] MEDS ORDERED: SUCCINYLCHOLINE 200 MG/10 ML VIAL IV ONE (10:00)
[2022-03-24] MEDS: PIPERACILLIN/TAZOBACTAM 3,375 MG in SODIUM CHLORIDE 0.9% 100 ML IV SCH ×2 (10:30→16:23)
[2022-03-24] MEDS ORDERED: MIDAZOLAM 2 MG/2 ML VIAL ONE (10:36)
[2022-03-24] MEDS ORDERED: MIDAZOLAM 2 MG/2 ML VIAL IV ONE (10:45)
[2022-03-24] MEDS ORDERED: PHENYLEPHRINE DRIP 40 MG/250 ML PREMIX IV ONE (10:48)
[2022-03-24] MEDS ORDERED: PHENYLEPHRINE DRIP 40 MG/250 ML PREMIX IV PRN (11:00)
[2022-03-24] MEDS ORDERED: SODIUM CHLORIDE 0.9% 500 ML IV ONE (11:00)
[2022-03-24 11:13] LABS: ABG HCO3 24.5 MMOL/L (20-26); ABG Oxygen Saturation 99.5 % (95-100); ABG PCO2 41.4 MM HG (35-48)
[2022-03-24 11:35] LABS: Bacteria,Urine Occasional /HPF (Few); Mucus,Urine Occasional /LPF (Occasional); RBC,Urine 140 /HPF (0-4); Squamous Epithelial Cell,Urine Occasional /HPF (0-10)
[2022-03-24 11:37] LABS: Bilirubin,Urine Moderate mg/dL (Negative); Glucose,Urine (UA) Negative (Negative); Ketones,Urine Trace mg/dL (Negative); Nitrite,Urine Positive (Negative); Protein,Urine 30 mg/dL (Negative); Urine Appearance Clear (Clear); Urine Color Yellow (Yellow); Urine Specific Gravity <= 1.005 (1.001-1.035); Urine pH 5.5 (4.5-8.0)
[2022-03-24 11:38] LABS: Blood, Urine Negative (Negative)
[2022-03-24] MEDS: MIDAZOLAM 100 MG in SODIUM CHLORIDE 0.9% 80 ML IV PRN (12:30)
[2022-03-24] MEDS: VANCOMYCIN INJ 1,000 MG in SODIUM CHLORIDE 0.9% 250 ML IV SCH (13:48)
[2022-03-24] MEDS: PHENYLEPHRINE INJ 160 MG in SODIUM CHLORIDE 0.9% 234 ML IV PRN (20:28)
[2022-03-25] MEDS: PIPERACILLIN/TAZOBACTAM 3,375 MG in SODIUM CHLORIDE 0.9% 100 ML IV SCH ×3 (00:03→16:11)
[2022-03-25] MEDS: SODIUM CHLORIDE 0.9% 1,000 ML IV SCH ×2 (02:08→07:05)
[2022-03-25 04:26] LABS: ABG Base Excess -0.7 MMOL/L (-2.5-2.5); ABG HCO3 23.8 MMOL/L (20-26); ABG Oxygen Saturation 98.4 % (95-100); ABG PCO2 39.3 MM HG (35-48); ABG PH 7.394 (7.35-7.45); ABG TCO2 21.5 MMOL/L (23-27)
[2022-03-25 04:47] LABS: Basophils % 0.1 % (0.0-0.8); Hematocrit 34.2 VOL% (42.0-52.0); Immature Granulocytes % 0.6 %; Immature Granulocytes Absolute 0.09 #; Lymphocytes # 0.4 10*3/uL (1.4-4.0); Lymphocytes % 2.8 % (21.2-54.2); Mean Corpuscular HGB Conc 32.5 GM/DL (32-36); Mean Corpuscular Volume 98.3 FL (87-102); Mean Platelet Volume 12.4 FL (9.6-12.0); Monocytes # 0.4 10*3/uL (0.11-0.8); Monocytes % 2.5 % (1.7-12.7); Platelet Count 227 T/CUMM (130-400); Red Blood Count 3.48 MC/CUMM (3.8-5.5); Red Cell Distribution Width 15.7 % (9.3-17.3); White Blood Count 15.2 T/CUMM (4-12)
[2022-03-25 04:48] LABS: Hemoglobin 11.1 GM/DL (14.0-18.0)
[2022-03-25 04:51] LABS: Calcium 7.8 MG/DL (8.5-10.1); Osmolality,Calculated 308.3 MOS/KG (273-304)
[2022-03-25 05:15] LABS: Band Neutrophils 10 % (0-10); Lymphocytes 5 % (20-55); Total Cells Counted 100
[2022-03-25] MEDS: ALBUTEROL/IPRATROPIUM 3 ML NEB RESP TX SCH ×4 (07:08→19:00)
[2022-03-25] MEDS: LACTATED RINGERS 1,000 ML IV SCH ×2 (07:49→19:00)
[2022-03-25] MEDS ORDERED: POTASSIUM PHOSPHATE 30 MMOL in SODIUM CHLORIDE 0.9% 250 ML IV ONE (08:30)
[2022-03-25] MEDS: methylPREDNISolone SOD SUC 40 MG/1 ML VIAL IV SCH ×2 (08:48→20:44)
[2022-03-25] MEDS: PANTOPRAZOLE 40 MG VIAL IV SCH (08:50)
[2022-03-25] MEDS: VANCOMYCIN INJ 1,000 MG in SODIUM CHLORIDE 0.9% 250 ML IV SCH (08:50)
[2022-03-25] MEDS: MIDAZOLAM 100 MG in SODIUM CHLORIDE 0.9% 80 ML IV PRN (08:54)
[2022-03-25] MEDS ORDERED: DEXTROSE 50% 25 GM/50 ML VIAL IV PRN (17:23)
[2022-03-25] MEDS: INSULIN LISPRO 100 UNIT/ML SUBCUT SCH (17:47)
[2022-03-26] MEDS: INSULIN LISPRO 100 UNIT/ML SUBCUT SCH ×4 (00:07→18:24)
[2022-03-26] MEDS: PIPERACILLIN/TAZOBACTAM 3,375 MG in SODIUM CHLORIDE 0.9% 100 ML IV SCH ×3 (00:07→16:25)
[2022-03-26] MEDS: ALBUTEROL/IPRATROPIUM 3 ML NEB RESP TX SCH ×4 (00:13→19:05)
[2022-03-26] MEDS: VANCOMYCIN INJ 1,000 MG in SODIUM CHLORIDE 0.9% 250 ML IV SCH (01:35)
[2022-03-26] MEDS: MIDAZOLAM 100 MG in SODIUM CHLORIDE 0.9% 80 ML IV PRN ×2 (03:39→18:25)
[2022-03-26 04:03] LABS: ABG Base Excess 0.7 MMOL/L (-2.5-2.5); ABG Oxygen Saturation 93.8 % (95-100); ABG PCO2 38.5 MM HG (35-48); ABG PH 7.421 (7.35-7.45); ABG PO2 71.5 MM HG (80-95); ABG TCO2 22.9 MMOL/L (23-27)
[2022-03-26 04:04] LABS: Basophils % 0.1 % (0.0-0.8); Hematocrit 31.7 VOL% (42.0-52.0); Hemoglobin 10.2 GM/DL (14.0-18.0); Immature Granulocytes % 0.7 %; Immature Granulocytes Absolute 0.09 #; Lymphocytes # 0.4 10*3/uL (1.4-4.0); Mean Corpuscular HGB Conc 32.2 GM/DL (32-36); Mean Corpuscular Volume 98.1 FL (87-102); Monocytes # 0.3 10*3/uL (0.11-0.8); Monocytes % 2.4 % (1.7-12.7); Neutrophils % 93.8 % (38.7-73.9); Platelet Count 181 T/CUMM (130-400); Red Blood Count 3.23 MC/CUMM (3.8-5.5); Red Cell Distribution Width 15.7 % (9.3-17.3); White Blood Count 12.3 T/CUMM (4-12)
[2022-03-26 04:23] LABS: Albumin 1.9 G/DL (3.4-5.0); Band Neutrophils 2 % (0-10); Bilirubin,Total 0.7 MG/DL (0.20-1.00); Lymphocytes 2 % (20-55); Osmolality,Calculated 305.1 MOS/KG (273-304); Platelet Estimate Adequate; Potassium 4.2 MMOL/L (3.5-5.1); Total Cells Counted 100; Total Protein 5.7 G/DL (6.4-8.2)
[2022-03-26] MEDS: LACTATED RINGERS 1,000 ML IV SCH ×2 (05:30→16:28)
[2022-03-26] MEDS: MORPHINE 2 MG/1 ML SYRINGE IV PRN ×2 (06:24→20:07)
[2022-03-26] MEDS: methylPREDNISolone SOD SUC 40 MG/1 ML VIAL IV SCH ×2 (08:38→20:55)
[2022-03-26] MEDS: PANTOPRAZOLE 40 MG VIAL IV SCH (08:38)
[2022-03-26] MEDS: hydrALAZINE 20 MG/1 ML VIAL IV PRN ×2 (09:54→16:29)
[2022-03-26] MEDS: FUROSEMIDE 40 MG/4 ML VIAL IV SCH (16:25)
[2022-03-26] MEDS: APIXABAN 5 MG TABLET PO SCH (20:55)
[2022-03-27] MEDS: INSULIN LISPRO 100 UNIT/ML SUBCUT SCH ×4 (00:03→18:23)
[2022-03-27] MEDS: PIPERACILLIN/TAZOBACTAM 3,375 MG in SODIUM CHLORIDE 0.9% 100 ML IV SCH ×3 (00:28→16:46)
[2022-03-27] MEDS: ALBUTEROL/IPRATROPIUM 3 ML NEB RESP TX SCH ×4 (00:54→19:00)
[2022-03-27 03:50] LABS: ABG Base Excess 2.1 MMOL/L (-2.5-2.5); ABG HCO3 26.3 MMOL/L (20-26); ABG Oxygen Saturation 99.6 % (95-100); ABG PCO2 40.9 MM HG (35-48); ABG PH 7.423 (7.35-7.45); ABG TCO2 23.9 MMOL/L (23-27); Basophils % 0.2 % (0.0-0.8); Hematocrit 33.3 VOL% (42.0-52.0); Hemoglobin 10.8 GM/DL (14.0-18.0); Immature Granulocytes % 2.1 %; Immature Granulocytes Absolute 0.33 #; Lymphocytes # 0.4 10*3/uL (1.4-4.0); Lymphocytes % 2.5 % (21.2-54.2); Mean Corpuscular HGB Conc 32.4 GM/DL (32-36); Mean Corpuscular Volume 97.7 FL (87-102); Mean Platelet Volume 11.9 FL (9.6-12.0); Monocytes # 0.3 10*3/uL (0.11-0.8); Neutrophils % 93.2 % (38.7-73.9); Platelet Count 237 T/CUMM (130-400); Red Blood Count 3.41 MC/CUMM (3.8-5.5); Red Cell Distribution Width 16.1 % (9.3-17.3); White Blood Count 16.1 T/CUMM (4-12)
[2022-03-27 04:09] LABS: Band Neutrophils 4 % (0-10); Lymphocytes 3 % (20-55); Macrocytosis Slight; Total Cells Counted 100
[2022-03-27 04:10] LABS: Ovalocytes Slight
[2022-03-27 04:14] LABS: Calcium 8.3 MG/DL (8.5-10.1); Osmolality,Calculated 300.6 MOS/KG (273-304); Potassium 4.7 MMOL/L (3.5-5.1)
[2022-03-27] MEDS: FUROSEMIDE 40 MG/4 ML VIAL IV SCH ×2 (08:39→16:46)
[2022-03-27] MEDS: methylPREDNISolone SOD SUC 40 MG/1 ML VIAL IV SCH ×2 (08:39→20:10)
[2022-03-27] MEDS: APIXABAN 5 MG TABLET PO SCH ×2 (08:40→20:10)
[2022-03-27] MEDS: PANTOPRAZOLE 40 MG VIAL IV SCH (08:40)
[2022-03-27] MEDS: MORPHINE 2 MG/1 ML SYRINGE IV PRN (08:41)
[2022-03-27] MEDS: MIDAZOLAM 100 MG in SODIUM CHLORIDE 0.9% 80 ML IV PRN (10:30)
[2022-03-27] MEDS: DEXMEDETOMIDINE 400 MCG in SODIUM CHLORIDE 0.9% 96 ML IV PRN (10:51)
[2022-03-28] MEDS: ALBUTEROL/IPRATROPIUM 3 ML NEB RESP TX SCH ×4 (00:06→20:38)
[2022-03-28] MEDS: INSULIN LISPRO 100 UNIT/ML SUBCUT SCH ×4 (00:22→18:40)
[2022-03-28] MEDS: PIPERACILLIN/TAZOBACTAM 3,375 MG in SODIUM CHLORIDE 0.9% 100 ML IV SCH ×3 (00:22→17:09)
[2022-03-28 04:19] LABS: ABG Base Excess 5.9 MMOL/L (-2.5-2.5); ABG HCO3 29.8 MMOL/L (20-26); ABG Oxygen Saturation 98.8 % (95-100); ABG PCO2 39.2 MM HG (35-48); ABG PH 7.486 (7.35-7.45); ABG TCO2 26.4 MMOL/L (23-27)
[2022-03-28 04:29] LABS: Basophils % 0.1 % (0.0-0.8); Hematocrit 33.7 VOL% (42.0-52.0); Hemoglobin 10.7 GM/DL (14.0-18.0); Immature Granulocytes % 1.9 %; Immature Granulocytes Absolute 0.14 #; Lymphocytes # 0.5 10*3/uL (1.4-4.0); Lymphocytes % 6.6 % (21.2-54.2); Mean Corpuscular HGB Conc 31.8 GM/DL (32-36); Mean Corpuscular Volume 98.8 FL (87-102); Mean Platelet Volume 12.7 FL (9.6-12.0); Monocytes # 0.3 10*3/uL (0.11-0.8); Monocytes % 3.6 % (1.7-12.7); Neutrophils % 87.8 % (38.7-73.9); Platelet Count 213 T/CUMM (130-400); Red Blood Count 3.41 MC/CUMM (3.8-5.5); Red Cell Distribution Width 15.9 % (9.3-17.3); White Blood Count 7.5 T/CUMM (4-12)
[2022-03-28 04:44] LABS: Albumin 2.1 G/DL (3.4-5.0); Bilirubin,Total 0.8 MG/DL (0.20-1.00); Calcium 8.3 MG/DL (8.5-10.1); Osmolality,Calculated 305.7 MOS/KG (273-304); Potassium 4.6 MMOL/L (3.5-5.1); Total Protein 5.7 G/DL (6.4-8.2)
[2022-03-28 06:04] LABS: Sedimentation Rate-Westergren 109 MM/HR (0-20)
[2022-03-28] MEDS: PANTOPRAZOLE 40 MG VIAL IV SCH (09:06)
[2022-03-28] MEDS: methylPREDNISolone SOD SUC 40 MG/1 ML VIAL IV SCH ×2 (09:07→22:32)
[2022-03-28] MEDS: FUROSEMIDE 40 MG/4 ML VIAL IV SCH (09:07)
[2022-03-28] MEDS: APIXABAN 5 MG TABLET PO SCH ×2 (09:08→22:40)
[2022-03-28 09:47] LABS: ABG Base Excess 6.6 MMOL/L (-2.5-2.5); ABG HCO3 30.3 MMOL/L (20-26); ABG Oxygen Saturation 91.7 % (95-100); ABG PCO2 41.9 MM HG (35-48); ABG PH 7.476 (7.35-7.45); ABG PO2 63.8 MM HG (80-95)
[2022-03-28] MEDS ORDERED: ROCURONIUM 100 MG/10 ML VIAL IV ONE (17:15)
[2022-03-28] MEDS ORDERED: ETOMIDATE 20 MG/10 ML VIAL IV ONE (17:15)
[2022-03-28] MEDS: PHENYLEPHRINE INJ 160 MG in SODIUM CHLORIDE 0.9% 234 ML IV PRN (17:22)
[2022-03-28] MEDS: ONDANSETRON 4 MG/2 ML VIAL IV PRN (18:12)
[2022-03-28] MEDS: METOCLOPRAMIDE 10 MG/2 ML VIAL IV SCH (18:51)
[2022-03-28] MEDS ORDERED: LACTATED RINGERS 1,000 ML IV ONE (22:20)
[2022-03-28] MEDS: MICAFUNGIN 150 MG in SODIUM CHLORIDE 0.9% 100 ML IV SCH (22:33)
[2022-03-28] MEDS: VANCOMYCIN INJ 1,250 MG in SODIUM CHLORIDE 0.9% 250 ML IV SCH (22:33)
[2022-03-28] MEDS: LACTATED RINGERS 1,000 ML IV SCH (23:55)
[2022-03-29] MEDS: DEXMEDETOMIDINE 400 MCG in SODIUM CHLORIDE 0.9% 96 ML IV PRN (00:13)
[2022-03-29] MEDS: INSULIN LISPRO 100 UNIT/ML SUBCUT SCH ×5 (00:35→23:54)
[2022-03-29] MEDS: METOCLOPRAMIDE 10 MG/2 ML VIAL IV SCH ×4 (00:36→18:00)
[2022-03-29] MEDS: ALBUTEROL/IPRATROPIUM 3 ML NEB RESP TX SCH ×5 (00:56→23:51)
[2022-03-29] MEDS: PIPERACILLIN/TAZOBACTAM 3,375 MG in SODIUM CHLORIDE 0.9% 100 ML IV SCH ×3 (01:11→16:30)
[2022-03-29 04:32] LABS: ABG Base Excess 2.7 MMOL/L (-2.5-2.5); ABG HCO3 26.8 MMOL/L (20-26); ABG Oxygen Saturation 97.5 % (95-100); ABG PH 7.477 (7.35-7.45); ABG PO2 99.9 MM HG (80-95); ABG TCO2 22.3 MMOL/L (23-27)
[2022-03-29 04:40] LABS: Basophils # 0.1 10*3/uL (0.0-0.2); Basophils % 0.3 % (0.0-0.8); Immature Granulocytes % 1.4 %; Immature Granulocytes Absolute 0.35 #; Lymphocytes # 0.5 10*3/uL (1.4-4.0); Lymphocytes % 1.9 % (21.2-54.2); Mean Corpuscular HGB Conc 33.3 GM/DL (32-36); Mean Corpuscular Volume 95.5 FL (87-102); Mean Platelet Volume 12.3 FL (9.6-12.0); Monocytes # 0.5 10*3/uL (0.11-0.8); Monocytes % 2.2 % (1.7-12.7); NRBC # 0.04 10*3/uL; Neutrophils % 94.2 % (38.7-73.9); Platelet Count 305 T/CUMM (130-400)
[2022-03-29 04:54] LABS: Calcium 8.6 MG/DL (8.5-10.1); Osmolality,Calculated 311.4 MOS/KG (273-304); Potassium 4.7 MMOL/L (3.5-5.1)
[2022-03-29 05:15] LABS: Lymphocytes 2 % (20-55); Platelet Estimate Adequate; Total Cells Counted 100
[2022-03-29] MEDS: PHENYLEPHRINE INJ 160 MG in SODIUM CHLORIDE 0.9% 234 ML IV PRN (06:14)
[2022-03-29] MEDS: methylPREDNISolone SOD SUC 40 MG/1 ML VIAL IV SCH ×2 (08:28→20:45)
[2022-03-29] MEDS: PANTOPRAZOLE 40 MG VIAL IV SCH (08:29)
[2022-03-29] MEDS: LACTATED RINGERS 1,000 ML IV SCH ×3 (08:29→23:28)
[2022-03-29] MEDS ORDERED: FUROSEMIDE 40 MG/4 ML VIAL IV SCH (09:00)
[2022-03-29] MEDS: VANCOMYCIN INJ 1,250 MG in SODIUM CHLORIDE 0.9% 250 ML IV SCH (12:35)
[2022-03-29] MEDS: APIXABAN 5 MG TABLET PO SCH ×2 (12:35→21:41)
[2022-03-29] MEDS: ERTAPENEM 1,000 MG in SODIUM CHLORIDE 0.9% 100 ML IV SCH (21:41)
[2022-03-29] MEDS: MICAFUNGIN 150 MG in SODIUM CHLORIDE 0.9% 100 ML IV SCH (21:41)
[2022-03-30] MEDS: METOCLOPRAMIDE 10 MG/2 ML VIAL IV SCH ×5 (00:15→23:31)
[2022-03-30] MEDS: LACTATED RINGERS 1,000 ML IV SCH ×3 (01:40→19:30)
[2022-03-30 04:07] LABS: ABG Base Excess 0.4 MMOL/L (-2.5-2.5); ABG HCO3 24.7 MMOL/L (20-26); ABG Oxygen Saturation 97.3 % (95-100); ABG PCO2 33.9 MM HG (35-48); ABG PH 7.454 (7.35-7.45); ABG PO2 99.6 MM HG (80-95)
[2022-03-30 04:14] LABS: Basophils % 0.2 % (0.0-0.8); Hematocrit 37.4 VOL% (42.0-52.0); Hemoglobin 12.1 GM/DL (14.0-18.0); Immature Granulocytes % 1.3 %; Immature Granulocytes Absolute 0.18 #; Lymphocytes # 0.7 10*3/uL (1.4-4.0); Lymphocytes % 5.1 % (21.2-54.2); Mean Corpuscular HGB Conc 32.4 GM/DL (32-36); Mean Corpuscular Volume 97.1 FL (87-102); Mean Platelet Volume 11.7 FL (9.6-12.0); Monocytes # 0.3 10*3/uL (0.11-0.8); Neutrophils % 91.4 % (38.7-73.9); Platelet Count 197 T/CUMM (130-400); Red Blood Count 3.85 MC/CUMM (3.8-5.5); Red Cell Distribution Width 15.8 % (9.3-17.3); White Blood Count 14.4 T/CUMM (4-12)
[2022-03-30 04:32] LABS: Albumin 1.7 G/DL (3.4-5.0); Bilirubin,Total 1.1 MG/DL (0.20-1.00); Osmolality,Calculated 310.3 MOS/KG (273-304); Potassium 4.5 MMOL/L (3.5-5.1); Total Protein 5.5 G/DL (6.4-8.2)
[2022-03-30 04:43] LABS: Osmolality,Calculated 303.7 MOS/KG (273-304); Potassium 4.4 MMOL/L (3.5-5.1)
[2022-03-30] MEDS: INSULIN LISPRO 100 UNIT/ML SUBCUT SCH ×3 (06:58→17:53)
[2022-03-30] MEDS: ALBUTEROL/IPRATROPIUM 3 ML NEB RESP TX SCH ×3 (07:46→19:19)
[2022-03-30] MEDS: methylPREDNISolone SOD SUC 40 MG/1 ML VIAL IV SCH ×2 (08:08→20:44)
[2022-03-30] MEDS: APIXABAN 5 MG TABLET PO SCH ×2 (08:09→20:44)
[2022-03-30] MEDS: PANTOPRAZOLE 40 MG VIAL IV SCH ×2 (08:26→20:44)
[2022-03-30] MEDS ORDERED: VANCOMYCIN INJ 1,250 MG in SODIUM CHLORIDE 0.9% 250 ML IV SCH (12:00)
[2022-03-30] MEDS: MORPHINE 2 MG/1 ML SYRINGE IV PRN (15:05)
[2022-03-30] MEDS: ERTAPENEM 1,000 MG in SODIUM CHLORIDE 0.9% 100 ML IV SCH (20:45)
[2022-03-30] MEDS: MICAFUNGIN 150 MG in SODIUM CHLORIDE 0.9% 100 ML IV SCH (21:40)
[2022-03-30] MEDS: VANCOMYCIN INJ 1,250 MG in SODIUM CHLORIDE 0.9% 250 ML IV SCH (23:31)
[2022-03-31] MEDS: LACTATED RINGERS 1,000 ML IV SCH ×3 (00:01→14:59)
[2022-03-31] MEDS: INSULIN LISPRO 100 UNIT/ML SUBCUT SCH ×4 (00:02→17:43)
[2022-03-31] MEDS: ALBUTEROL/IPRATROPIUM 3 ML NEB RESP TX SCH ×4 (00:43→19:25)
[2022-03-31 03:33] LABS: Basophils % 0.1 % (0.0-0.8); Hematocrit 32.9 VOL% (42.0-52.0); Hemoglobin 10.7 GM/DL (14.0-18.0); Lymphocytes # 0.4 10*3/uL (1.4-4.0); Lymphocytes % 4.4 % (21.2-54.2); Mean Corpuscular HGB Conc 32.5 GM/DL (32-36); Mean Corpuscular Volume 96.8 FL (87-102); Monocytes # 0.2 10*3/uL (0.11-0.8); Monocytes % 2.1 % (1.7-12.7); Neutrophils % 92.4 % (38.7-73.9); Platelet Count 166 T/CUMM (130-400); Red Cell Distribution Width 15.2 % (9.3-17.3); White Blood Count 9.8 T/CUMM (4-12)
[2022-03-31 03:46] LABS: ABG Base Excess 1.6 MMOL/L (-2.5-2.5); ABG HCO3 25.8 MMOL/L (20-26); ABG Oxygen Saturation 97.9 % (95-100); ABG PCO2 38.2 MM HG (35-48); ABG PH 7.436 (7.35-7.45); ABG TCO2 23.2 MMOL/L (23-27)
[2022-03-31 03:51] LABS: Calcium 7.7 MG/DL (8.5-10.1); Osmolality,Calculated 298.7 MOS/KG (273-304); Potassium 4.6 MMOL/L (3.5-5.1)
[2022-03-31 04:02] LABS: Lymphocytes 4 % (20-55); Platelet Estimate Normal; Total Cells Counted 100
[2022-03-31] MEDS: METOCLOPRAMIDE 10 MG/2 ML VIAL IV SCH ×3 (05:37→18:02)
[2022-03-31] MEDS: PANTOPRAZOLE 40 MG VIAL IV SCH ×2 (08:21→20:06)
[2022-03-31] MEDS: methylPREDNISolone SOD SUC 40 MG/1 ML VIAL IV SCH ×2 (08:21→20:05)
[2022-03-31] MEDS: APIXABAN 5 MG TABLET PO SCH ×2 (08:21→20:05)
[2022-03-31] MEDS: VANCOMYCIN INJ 1,250 MG in SODIUM CHLORIDE 0.9% 250 ML IV SCH (12:50)
[2022-03-31] MEDS: ERTAPENEM 1,000 MG in SODIUM CHLORIDE 0.9% 100 ML IV SCH (20:06)
[2022-03-31] MEDS: MICAFUNGIN 150 MG in SODIUM CHLORIDE 0.9% 100 ML IV SCH (21:16)
[2022-04-01] MEDS: ALBUTEROL/IPRATROPIUM 3 ML NEB RESP TX SCH ×4 (00:10→19:08)
[2022-04-01] MEDS: VANCOMYCIN INJ 1,250 MG in SODIUM CHLORIDE 0.9% 250 ML IV SCH (00:14)
[2022-04-01] MEDS: LACTATED RINGERS 1,000 ML IV SCH ×4 (00:15→21:57)
[2022-04-01] MEDS: METOCLOPRAMIDE 10 MG/2 ML VIAL IV SCH ×4 (00:15→17:43)
[2022-04-01] MEDS: INSULIN LISPRO 100 UNIT/ML SUBCUT SCH ×5 (00:17→23:21)
[2022-04-01 04:19] LABS: Eosinophils % 0.1 % (0.00-10.9); Hematocrit 30.4 VOL% (42.0-52.0); Hemoglobin 10.3 GM/DL (14.0-18.0); Immature Granulocytes % 1.1 %; Immature Granulocytes Absolute 0.08 #; Lymphocytes # 0.6 10*3/uL (1.4-4.0); Lymphocytes % 7.4 % (21.2-54.2); Mean Corpuscular HGB Conc 33.9 GM/DL (32-36); Mean Corpuscular Volume 94.7 FL (87-102); Mean Platelet Volume 11.2 FL (9.6-12.0); Monocytes # 0.3 10*3/uL (0.11-0.8); Monocytes % 3.3 % (1.7-12.7); Neutrophils % 88.1 % (38.7-73.9); Platelet Count 216 T/CUMM (130-400); Red Blood Count 3.21 MC/CUMM (3.8-5.5); Red Cell Distribution Width 14.8 % (9.3-17.3); White Blood Count 7.6 T/CUMM (4-12)
[2022-04-01 04:26] LABS: Arterial Bicarbonate iSTAT 25.7 MMOL/L (20-26); Arterial pH iSTAT 7.457 (7.35-7.45)
[2022-04-01 04:34] LABS: Calcium 7.5 MG/DL (8.5-10.1); Osmolality,Calculated 291.1 MOS/KG (273-304); Potassium 4.6 MMOL/L (3.5-5.1)
[2022-04-01] MEDS: methylPREDNISolone SOD SUC 40 MG/1 ML VIAL IV SCH ×2 (08:45→20:49)
[2022-04-01] MEDS: PANTOPRAZOLE 40 MG VIAL IV SCH (08:45)
[2022-04-01] MEDS: APIXABAN 5 MG TABLET PO SCH ×2 (08:45→20:49)
[2022-04-01] MEDS: ERTAPENEM 1,000 MG in SODIUM CHLORIDE 0.9% 100 ML IV SCH (20:49)
[2022-04-01] MEDS: MICAFUNGIN 150 MG in SODIUM CHLORIDE 0.9% 100 ML IV SCH (21:00)
[2022-04-02] MEDS: ALBUTEROL/IPRATROPIUM 3 ML NEB RESP TX SCH ×4 (00:10→19:11)
[2022-04-02 03:51] LABS: ABG Base Excess 3.3 MMOL/L (-2.5-2.5); ABG HCO3 27.3 MMOL/L (20-26); ABG Oxygen Saturation 97.5 % (95-100); ABG PO2 94.9 MM HG (80-95); ABG TCO2 24.4 MMOL/L (23-27)
[2022-04-02 03:55] LABS: Basophils % 0.1 % (0.0-0.8); Hematocrit 28.9 VOL% (42.0-52.0); Hemoglobin 9.9 GM/DL (14.0-18.0); Immature Granulocytes % 1.1 %; Immature Granulocytes Absolute 0.09 #; Lymphocytes # 0.5 10*3/uL (1.4-4.0); Lymphocytes % 6.4 % (21.2-54.2); Mean Corpuscular HGB Conc 34.3 GM/DL (32-36); Mean Corpuscular Volume 92.6 FL (87-102); Mean Platelet Volume 11.5 FL (9.6-12.0); Monocytes # 0.2 10*3/uL (0.11-0.8); Monocytes % 2.4 % (1.7-12.7); Platelet Count 220 T/CUMM (130-400); Red Blood Count 3.12 MC/CUMM (3.8-5.5); Red Cell Distribution Width 14.7 % (9.3-17.3)
[2022-04-02 04:07] LABS: Calcium 7.7 MG/DL (8.5-10.1); Osmolality,Calculated 280.7 MOS/KG (273-304); Potassium 4.3 MMOL/L (3.5-5.1)
[2022-04-02] MEDS: METOCLOPRAMIDE 10 MG/2 ML VIAL IV SCH ×4 (05:59→18:37)
[2022-04-02] MEDS: INSULIN LISPRO 100 UNIT/ML SUBCUT SCH ×3 (06:00→18:03)
[2022-04-02] MEDS: methylPREDNISolone SOD SUC 40 MG/1 ML VIAL IV SCH ×2 (08:04→20:42)
[2022-04-02] MEDS: PANTOPRAZOLE 40 MG VIAL IV SCH (08:05)
[2022-04-02] MEDS: APIXABAN 5 MG TABLET PO SCH ×2 (08:05→20:42)
[2022-04-02 10:02] LABS: ABG Base Excess 2.9 MMOL/L (-2.5-2.5); ABG Oxygen Saturation 96.1 % (95-100); ABG PCO2 36.8 MM HG (35-48); ABG PH 7.466 (7.35-7.45); ABG PO2 81.6 MM HG (80-95); ABG TCO2 23.9 MMOL/L (23-27)
[2022-04-02] MEDS: LACTATED RINGERS 1,000 ML IV SCH (11:31)
[2022-04-02 18:12] LABS: ABG Base Excess 2.8 MMOL/L (-2.5-2.5); ABG HCO3 26.9 MMOL/L (20-26); ABG Oxygen Saturation 97.5 % (95-100); ABG PH 7.472 (7.35-7.45); ABG PO2 95.9 MM HG (80-95); ABG TCO2 23.5 MMOL/L (23-27)
[2022-04-02] MEDS: ERTAPENEM 1,000 MG in SODIUM CHLORIDE 0.9% 100 ML IV SCH (20:42)
[2022-04-02] MEDS: MICAFUNGIN 150 MG in SODIUM CHLORIDE 0.9% 100 ML IV SCH (21:00)
[2022-04-03] MEDS: INSULIN LISPRO 100 UNIT/ML SUBCUT SCH ×4 (00:06→18:19)
[2022-04-03] MEDS: ALBUTEROL/IPRATROPIUM 3 ML NEB RESP TX SCH ×4 (00:58→18:30)
[2022-04-03] MEDS: LACTATED RINGERS 1,000 ML IV SCH ×3 (00:59→14:00)
[2022-04-03] MEDS: METOCLOPRAMIDE 10 MG/2 ML VIAL IV SCH ×4 (01:00→18:18)
[2022-04-03 03:46] LABS: Basophils % 0.1 % (0.0-0.8); Hematocrit 30.6 VOL% (42.0-52.0); Hemoglobin 10.6 GM/DL (14.0-18.0); Immature Granulocytes % 1.4 %; Immature Granulocytes Absolute 0.15 #; Lymphocytes # 0.5 10*3/uL (1.4-4.0); Mean Corpuscular HGB Conc 34.6 GM/DL (32-36); Mean Corpuscular Volume 91.3 FL (87-102); Mean Platelet Volume 11.3 FL (9.6-12.0); Monocytes # 0.3 10*3/uL (0.11-0.8); Monocytes % 2.5 % (1.7-12.7); Platelet Count 263 T/CUMM (130-400); Red Blood Count 3.35 MC/CUMM (3.8-5.5); Red Cell Distribution Width 14.4 % (9.3-17.3); White Blood Count 10.7 T/CUMM (4-12)
[2022-04-03 03:50] LABS: ABG Base Excess 2.9 MMOL/L (-2.5-2.5); ABG HCO3 26.9 MMOL/L (20-26); ABG Oxygen Saturation 96.1 % (95-100); ABG PCO2 38.6 MM HG (35-48); ABG TCO2 23.1 MMOL/L (23-27)
[2022-04-03 04:05] LABS: Lymphocytes 7 % (20-55); Platelet Estimate Adequate; Total Cells Counted 100
[2022-04-03 04:08] LABS: Calcium 7.7 MG/DL (8.5-10.1); Osmolality,Calculated 282.4 MOS/KG (273-304); Potassium 4.4 MMOL/L (3.5-5.1)
[2022-04-03] MEDS ORDERED: FUROSEMIDE 40 MG/4 ML VIAL IV ONE (07:55)
[2022-04-03] MEDS: methylPREDNISolone SOD SUC 40 MG/1 ML VIAL IV SCH ×2 (08:32→21:10)
[2022-04-03] MEDS: APIXABAN 5 MG TABLET PO SCH ×2 (08:32→21:10)
[2022-04-03] MEDS: PANTOPRAZOLE 40 MG VIAL IV SCH (08:33)
[2022-04-03] MEDS: MORPHINE 2 MG/1 ML SYRINGE IV PRN (18:18)
[2022-04-03] MEDS: ERTAPENEM 1,000 MG in SODIUM CHLORIDE 0.9% 100 ML IV SCH (21:11)
[2022-04-03] MEDS: MICAFUNGIN 150 MG in SODIUM CHLORIDE 0.9% 100 ML IV SCH (22:00)
[2022-04-04] MEDS: ALBUTEROL/IPRATROPIUM 3 ML NEB RESP TX SCH ×4 (00:48→19:22)
[2022-04-04] MEDS: METOCLOPRAMIDE 10 MG/2 ML VIAL IV SCH ×5 (01:01→23:37)
[2022-04-04] MEDS: INSULIN LISPRO 100 UNIT/ML SUBCUT SCH ×3 (01:02→16:59)
[2022-04-04] MEDS: LACTATED RINGERS 1,000 ML IV SCH ×2 (05:20→18:04)
[2022-04-04 05:23] LABS: Basophils % 0.2 % (0.0-0.8); Eosinophils % 0.1 % (0.00-10.9); Hematocrit 31.9 VOL% (42.0-52.0); Immature Granulocytes % 1.1 %; Immature Granulocytes Absolute 0.15 #; Lymphocytes # 0.6 10*3/uL (1.4-4.0); Lymphocytes % 4.5 % (21.2-54.2); Mean Corpuscular HGB Conc 34.5 GM/DL (32-36); Mean Corpuscular Volume 92.7 FL (87-102); Mean Platelet Volume 11.8 FL (9.6-12.0); Monocytes # 0.3 10*3/uL (0.11-0.8); Monocytes % 2.1 % (1.7-12.7); Platelet Count 207 T/CUMM (130-400); Red Blood Count 3.44 MC/CUMM (3.8-5.5); Red Cell Distribution Width 14.6 % (9.3-17.3); White Blood Count 14.2 T/CUMM (4-12)
[2022-04-04 05:25] LABS: Calcium 8.2 MG/DL (8.5-10.1); Potassium 4.2 MMOL/L (3.5-5.1)
[2022-04-04 05:45] LABS: Lymphocytes 3 % (20-55); Total Cells Counted 100
[2022-04-04 05:46] LABS: Platelet Estimate Adequate
[2022-04-04] MEDS: APIXABAN 5 MG TABLET PO SCH ×2 (08:54→20:41)
[2022-04-04] MEDS: PANTOPRAZOLE 40 MG VIAL IV SCH (08:54)
[2022-04-04] MEDS: methylPREDNISolone SOD SUC 40 MG/1 ML VIAL IV SCH ×2 (08:54→20:41)
[2022-04-04] MEDS: ERTAPENEM 1,000 MG in SODIUM CHLORIDE 0.9% 100 ML IV SCH (20:40)
[2022-04-05] MEDS: ALBUTEROL/IPRATROPIUM 3 ML NEB RESP TX SCH ×4 (00:30→19:34)
[2022-04-05 05:27] LABS: Phosphorous 2.5 MG/DL (2.5-4.9)
[2022-04-05] MEDS: METOCLOPRAMIDE 10 MG/2 ML VIAL IV SCH ×3 (05:56→17:45)
[2022-04-05] MEDS: LACTATED RINGERS 1,000 ML IV SCH ×2 (07:11→20:32)
[2022-04-05] MEDS: INSULIN LISPRO 100 UNIT/ML SUBCUT SCH ×2 (08:29→17:15)
[2022-04-05] MEDS: methylPREDNISolone SOD SUC 40 MG/1 ML VIAL IV SCH ×2 (09:00→20:31)
[2022-04-05] MEDS: PANTOPRAZOLE 40 MG VIAL IV SCH (09:00)
[2022-04-05] MEDS: APIXABAN 5 MG TABLET PO SCH ×2 (09:00→20:31)
[2022-04-05] MEDS: ERTAPENEM 1,000 MG in SODIUM CHLORIDE 0.9% 100 ML IV SCH (21:51)
[2022-04-06] MEDS: ALBUTEROL/IPRATROPIUM 3 ML NEB RESP TX SCH ×3 (00:20→13:40)
[2022-04-06] MEDS: METOCLOPRAMIDE 10 MG/2 ML VIAL IV SCH ×3 (01:20→12:13)
[2022-04-06 05:11] LABS: Calcium 8.1 MG/DL (8.5-10.1); Osmolality,Calculated 276.8 MOS/KG (273-304); Potassium 4.2 MMOL/L (3.5-5.1)
[2022-04-06] MEDS: INSULIN LISPRO 100 UNIT/ML SUBCUT SCH (08:44)
[2022-04-06] MEDS: methylPREDNISolone SOD SUC 40 MG/1 ML VIAL IV SCH (08:59)
[2022-04-06] MEDS: APIXABAN 5 MG TABLET PO SCH (09:00)
[2022-04-06] MEDS: LACTATED RINGERS 1,000 ML IV SCH (09:06)
[2022-04-06] MEDS: PANTOPRAZOLE 40 MG VIAL IV SCH (09:06)
[2022-04-06 11:28] VITALS: BP 114/57
== END 2022-04-06 15:02 | DRG 870 ==
LOC: N.ED 13:14 → N.EDINP 18:38 → SUATTDRO 18:38 → N.TELEN 21:07 → N.ICU 03-24 09:46 → N.3E 04-05 18:12
PROVIDERS: ADMIT Family Medicine; ATTEND Family Medicine
PROC: EGDWPEG (ICD-10-PCS; 2022-03-23 08:05)